=== PATIENT | male | born 1990 | race Caucasian/White ===

== ENCOUNTER 2017-11-12 15:51 | Emergency (ER) | payer OTHER ==
[~2017-11-12] VITALS: Ht 175.3 cm; Wt 88.5 kg
[~2017-11-12 15:51] MED LIST: CLEOCIN HCL300 M1 PO; MOBIC15 M1 PO; POLYTRIM O200 GTT/BO OP; ZITHROMAX TRI-500 MG PO; ZITHROMAX Z-PA250 M1 PO
[2017-11-12 15:58] VITALS: BP 155/79
--- NOTE | 2017-11-12 16:21 | ED UPPER/LOWER EXTREMITY COMPL ---
History of Present Illness General Chief Complaint: Foot or Ankle Injury Stated Complaint: R ANKLE PAIN Source: patient Exam Limitations: no limitations Vital Signs & Intake/Output Vital Signs & Intake/Output Vital Signs Date Time Temp Pulse Resp B/P B/P Pulse O2 O2 Flow FiO2 Mean Ox Delivery Rate 11/12 1558 96.1 100 18 155/79 98 Room Air Allergies Coded Allergies: amoxicillin (HIVES 07/03/16) penicillin G (HIVES 07/03/16) Reconcile Medications Clindamycin HCl (Cleocin HCl) 300 MG CAPSULE 1 CAP PO BID CELLULITIS Meloxicam (Mobic) 15 MG TABLET 1 TAB PO DAILY PRN PAIN Triage Note: 26M WITH RIGHT ANKLE SWELLING AND LATERAL AND ANTERIOR FOOT PAIN SINCE SNOWBOARDING YESTERDAY, UNSURE OF MECHANISM OF INJURY. TAKING MOTRIN WITH IMPROVEMENT. AMBULATES WITH LIMP. ACCEPTING OF WHEELCHAIR, DECLINED TYLENOL OFFERED. +DP AND +PT PULSES Triage Nurses Notes Reviewed? yes Onset: Abrupt Duration: day(s): (1) Timing: no prior history Severity: moderate Severity Numbers: 6 Pain/Injury Location: Right: Ankle. Method of Injury: fall Modifying Factors: Improves With: immobilization. Worsens With: movement. HPI: Patient is a 26-year-old male presenting to the emergency Department chief complaint of right ankle pain after falling while snowboarding yesterday. Patient reports that he rolled his right ankle after falling during snowboarding , denies head strike. No LOC. Pain is moderate aching throbbing worse with range of motion and with weightbearing. Has been taking Motrin or homicidal relief. Has also been icing with little relief. Decided to come in for evaluation today to make sure nothing was broken. (Maria T Mcguire) Past History Travel History Traveled to [place] past 21 day No Medical History Any Pertinent Medical History? see below for history Neurological: NONE EENT: NONE Cardiovascular: NONE Respiratory: NONE Gastrointestinal: NONE Hepatic: NONE Renal: NONE Musculoskeletal: NONE Psychiatric: anxiety Endocrine: NONE Blood Disorders: NONE Cancer(s): NONE PROJECT SUPERINTENDENT/Reproductive: NONE Tetanus Vaccine: 04/14/15 Surgical History Surgical History: non-contributory Psychosocial History Who do you live with Family What is your primary language Turkmen Tobacco Use: Never used Family History Hx Contributory? No (Maria T Mcguire) Review of Systems Review of Systems Constitutional: Reports: no symptoms. Comments Review of systems: See HPI, All other systems negative. Constitutional, no chills fever or weight loss HEENT: No visual changes no sore throat no congestion Cardiovascular: No chest pain ,palpitation Skin, no jaundice no rashes Respiratory: No dyspnea cough sputum GI: No nausea no vomiting Muscle skeletal: no back pain, no neck pain, Neurologic: No numbness Immunology: Up-to-date with immunizations (Jeremie SETHI,Maria T) Physical Exam Physical Exam General Appearance: well developed/nourished, no apparent distress, alert, awake , comfortable Comments: Well-developed well-nourished person in no acute distress HEENT: Atraumatic, normocephalic Neck: Normal inspection Cardiovascular: Pedal pulses are 2+ bilaterally. Respiratory: No respiratory distress. Extremity: Right Ankle with moderate tenderness laterally over the lateral ligaments. No bony tenderness. No medial tenderness. Range of motion is near full but somewhat limited due to pain. No instability is noted. Skin is intact, mild swelling and ecchymosis laterally. The foot is neurovascularly intact with sensation and motor grossly intact. There is no foot tenderness or fifth metatarsal tenderness. Able to move all toes. No calf tenderness to palpation bilaterally. Neuro: Alert oriented x3, motor sensory normal, cranial nerves II through XII grossly intact. Skin: Warm and dry throughout. No lesions or rashes noted on exposed areas. Psych: Mood and affect is normal, memory and judgment is normal. (Jeremie SETHI,Maria T) Progress Differential Diagnosis: contusion, dislocation, fracture, sprain, tendon injury Plan of Care: Orders Procedure Date/time Status Durable Medical Equipment 11/12 1648 Active Diagnostic Imaging: Viewed by Me: Radiology Read. Discussed w/RAD: Radiology Read. Radiology Impression: PATIENT: ADAN RAMIREZ PRESENT AGE: 26 PATIENT ACCOUNT NO: [id number] : 90 LOCATION: [facility] ORDERING PHYSICIAN: Maria T SETHI SERVICE DATE: 11/12/17-7817 EXAM TYPE: RAD - XRY-ANKLE 3 OR MORE VIEWS R; XRY-FOOT COMPLETE, R EXAMINATION: XR ANKLE, RIGHT XR FOOT, RIGHT CLINICAL INFORMATION: Pain/swelling status post injury. COMPARISON: None TECHNIQUE: AP, lateral, and mortise views of the right ankle and AP, lateral, and oblique views of the right foot. FINDINGS: RIGHT ANKLE: No fracture. Alignment is anatomic. Ankle mortise is symmetric. Joint spaces are maintained. Diffuse swelling about the ankle joint. No definite joint effusion. RIGHT FOOT: The bones and soft tissues are normal. No fracture. Alignment is anatomic. No erosions. Joint spaces are maintained. IMPRESSION: Soft tissue swelling about the ankle. No ankle or foot fracture or dislocation. DICTATED BY: Beth De La Torre MD DATE/TIME DICTATED:11/12/171626 [employer]ES:[employer] DATE/TIME TRANSCRIBED:11/12/171626 CONFIDENTIAL, DO NOT COPY WITHOUT APPROPRIATE AUTHORIZATION. <Electronically signed in Other Vendor System> SIGNED BY: Beth De La Torre MD 11/12/17 1638 (Maria T Mcguire) Departure Departure Time of Disposition: 1648 Disposition: HOME OR SELF CARE Condition: Stable Clinical Impression Primary Impression: Ankle sprain Qualifiers: Encounter type: initial encounter Involved ligament of ankle: unspecified ligament Laterality: right Qualified Code: S93.401A - Sprain of unspecified ligament of right ankle, initial encounter Referrals: Jennifer PRATT,Geovanny Estrada (PCP/Family) Additional Instructions: Follow-up with your primary care physician in the next 5-7 days, call to make an appointment. Rest ice and elevate affected extremity. Wear brace for support. Use crutches for the next 3-4 days to help with weightbearing. Alternate Motrin and Tylenol [id number] as directed for the next 4-5 days. When she prior to taking medication. Return for worsening symptoms or concerns. Departure Forms: Customer Survey General Discharge Information RELEASE- WORK (Maria T Mcguire) PA/LINE MAINTAINER Co-Sign Statement Statement: ED Attending supervision documentation- [] I saw and evaluated the patient. I have also reviewed all the pertinent lab results and diagnostic results. I agree with the findings and the plan of care as documented in the PA's/LINE MAINTAINER's documentation. [X] I have reviewed the ED Record and agree with the PA's/LINE MAINTAINER's documentation. [] Additions or exceptions (if any) to the PAs/LINE MAINTAINER's note and plan are summarized below: [] (Rebeka PRATT,Kwaku Sahu) Procedures Splinting Location: RIGHT ANKLE Manual Alignment Performed: No Pre-Made Type: aircast Splint: aIRCAST Splint Applied By: splint applied by other (NURSING) Pre-Proc Neuro Vasc Exam: normal Post-Proc Neuro Vasc Exam: normal Progress: Tolerated procedure well. (Jeremie SETHI,Maria T)
--- NOTE | 2017-11-12 16:38 | RADIOLOGY REPORT ---
EXAMINATION: XR ANKLE, RIGHT XR FOOT, RIGHT CLINICAL INFORMATION: Pain/swelling status post injury. COMPARISON: None TECHNIQUE: AP, lateral, and mortise views of the right ankle and AP, lateral, and oblique views of the right foot. FINDINGS: RIGHT ANKLE: No fracture. Alignment is anatomic. Ankle mortise is symmetric. Joint spaces are maintained. Diffuse swelling about the ankle joint. No definite joint effusion. RIGHT FOOT: The bones and soft tissues are normal. No fracture. Alignment is anatomic. No erosions. Joint spaces are maintained. IMPRESSION: Soft tissue swelling about the ankle. No ankle or foot fracture or dislocation.
== END 2017-11-12 17:00 ==
LOC: ERH 15:51
DX: S93.401A Sprain of unspecified ligament of right ankle, initial encounter (principal); V00.311A Fall from snowboard, initial encounter; Y92.9 Unspecified place or not applicable; Y93.23 Activity, snow (alpine) (downhill) skiing, snowboarding, sledding, tobogganing and snow tubing
CPT/HCPCS: 73610-RT; 73630-RT; 96372; J1885